=== PATIENT | male | born 1950 | race Caucasian/White ===

== ENCOUNTER 2017-08-14 10:43 | Emergency (ER) | payer BC, OTHER ==
[~2017-08-14] VITALS: Ht 182.9 cm; Wt 111.4 kg
[~2017-08-14 10:43] MED LIST: AMOX500T PO; ASPI81 PO; ATEN1TAB73 PO; CEPH500C3 PO; COQ10 PO; CRES20TA OR; FISH1000 PO; IBUP-238 PO; LORT5TAB PO; SAWPOW PO; TAB-TAB PO; VITA500T10 PO; [UNRECOGNIZED DRUG - CODE] PO
[2017-08-14 11:27] VITALS: BP 173/87; PULSE 60; RESP 18; TEMP 97.6; O2SAT 99
[2017-08-14] MEDS ORDERED: ASPI81CH7 CHEW (11:39)
[2017-08-14] MEDS ORDERED: ATEN25TA PO (11:39)
--- NOTE | 2017-08-14 11:56 | PD ---
HPI Chief Complaint: Injury Time Seen by Provider: 11:39 Travel History International Travel<30 days: No Contact w/Intl Traveler<30days: No Traveled to known affect area: No History of Present Illness HPI 67-year-old male presents to the emergency department with complaint of left knee pain and swelling since Sunday. Denies strain or traumatic injury. Denies paresthesias, loss of sensation, decreased range of motion, decreased strength to the affected extremity. Is ambulatory in the affected extremity. Denies fever, vomiting. Pain is to the medial aspect. Pain is worse with walking. Better with rest. Rates pain 9/10 with ambulation. Minimal pain while at rest. has taken ibuprofen for symptom management. Dr. Quiroga his primary care provider. History of hypertension. No known allergies. Has no other medical complaints. No other modifying factors or associated signs and symptoms. PFSH Past Medical History Blood Disorders: No Cancer: Yes (LYMPHOMA T-CELL) Cardiovascular Problems: Yes (CAD) High Cholesterol: Yes Coronary Artery Disease: Yes Diabetes: No Glaucoma: No Hepatitis: No Hiatal Hernia: No Hypertension: Yes Thyroid Disease: No Tetanus Vaccination: > 5 Years Past Surgical History Pacemaker: No Other Surgery: Yes (LEFT KNEE) Social History Alcohol Use: Yes (2-3 DRINKS 3-4 X A WEEK) Tobacco Use: No Substance Use: No Allergies-Medications (Allergen,Severity, Reaction): Coded Allergies: No Known Allergies (Verified Adverse Reaction, Unknown, 08/14/17) Uncoded Allergies: NKA (Allergy, Unknown, 01/20/03) NKDA (Allergy, Unknown, 01/20/03) Reported Meds & Prescriptions Reported Meds & Active Scripts Active Reported Aspirin Children's (Aspirin) 81 Mg Chew 81 Mg CHEW BID Atenolol 25 Mg Tab 25 Mg PO BID Review of Systems Except as stated in HPI: all other systems reviewed are Neg Physical Exam Narrative GENERAL: Well-nourished, well-developed male patient, in no acute distress; afebrile, nontoxic-appearing SKIN: Warm and dry. HEAD: Atraumatic. Normocephalic. EYES: Pupils equal and round. No scleral icterus. No injection or drainage. ENT: Mucosa pink and moist. Airway patent. NECK: Trachea midline. CARDIOVASCULAR: Regular rate. RESPIRATORY: No accessory muscle use. GASTROINTESTINAL: Rounded. MUSCULOSKELETAL: Left knee edematous, nonerythematous, and without ecchymosis; full range of motion and flexion to 90; point tenderness to the medial aspect; joint stable with negative drawer test; no obvious deformity. Left lower extremity is supple and non-tense with 2+ pedal pulse and sensory intact and without erythema or edema. Ambulatory in room with a limp to the left lower extremity. NEUROLOGICAL: Awake and alert. Oriented 3. No obvious cranial nerve deficits. Motor grossly within normal limits. Normal speech. PSYCHIATRIC: Appropriate mood and affect; insight and judgment normal. Data Data Last Documented VS Vital Signs Date Time Temp Pulse Resp B/P (MAP) Pulse Ox O2 Delivery O2 Flow Rate FiO2 08/14/17 11:27 97.6 60 18 173/87 (115) 99 Orders Orders Knee, Complete (4vws) (08/14/17 11:48) Crutches (08/14/17 11:48) MDM Medical Decision Making Medical Screen Exam Complete: Yes Emergency Medical Condition: Yes Medical Record Reviewed: Yes Differential Diagnosis Arthritis, bursitis, meniscal tear, knee strain, knee pain Narrative Course 67-year-old male with left knee pain and swelling. Denies injury. Left knee x- ray ordered. I offered the patient pain medication and he declined. 1239: Left knee x-ray concluded: Copy of the x-ray provided to the patient. Crutches and Kiel bandage provided for support. Patient says he has Percocet and Lortab for pain at home. Medrol Dosepak, ibuprofen prescribed for home. Instructed patient to follow-up if symptoms persist greater than 7-10 days. Instructed patient to follow up with primary care provider. Patient verbalizes understanding and agreement with treatment plan. Patient is medically cleared and stable for discharge. Discussed reasons to return to the emergency department. Patient agrees with treatment plan. The patients vital signs are stable and the patient is stable for outpatient follow-up and treatment. Patient discharged home, stable and in no acute distress. Diagnosis Primary Impression: Left knee pain Qualified Codes: M25.562 - Pain in left knee Referrals: Orthopaedic Surgeon Primary Care Physician Patient Instructions: Crutch Instructions (ED), General Instructions, Knee Pain (ED) Additional Instructions: Tylenol or ibuprofen as needed and as directed to reduce pain and inflammation Rest, ice, compress, and elevate extremity to decrease pain and inflammation Knee brace for support Crutches for support Avoid aggravating activity; increase activity as tolerated Follow-up with primary care provider Follow-up with orthopedics Return to the emergency department immediately with worsening symptoms Med/Other Pt SpecificInfo: Prescription(s) given Scripts Ibuprofen (Ibuprofen) 800 Mg Tab 800 MG PO Q6HR Y for PAIN, #30 TAB 0 Refills Prov: Germania Gnog 08/14/17 Methylprednisolone Dosepak (Medrol Dosepak) 4 Mg Dspk 4 MG PO DIRECTED, #1 DSPK 0 Refills Per Pharmacist direction Prov: Germania Gong 08/14/17 Disposition: 01 DISCHARGE HOME Condition: Stable Germania Gong Aug 14, 2017 11:55
--- NOTE | 2017-08-14 12:33 | RADRPT ---
EXAM DATE/TIME: 08/14/2017 12:07 [facility] COMPARISON: No previous studies available for comparison. INDICATIONS : Left knee pain, no injury. MEDICAL HISTORY : None. SURGICAL HISTORY : None. ENCOUNTER: Initial ACUITY: 3 days PAIN SCORE: 9/10 LOCATION: Left lateral knee FINDINGS: 4 view examination demonstrates moderate narrowing of the medial compartment, tibial plateau sclerosi s, and moderate osteophyte formation. There is also superior osteophytes rising from the patella. The suprapatellar soft tissues are not distended. No fracture seen. No radiopaque foreign bodies. CONCLUSION: Moderate degenerative changes in the medial and patellofemoral compartments. Adan Nichols MD on August 14, 2017 at 12:24 Board Certified Radiologist. This report was verified electronically.
[2017-08-14] MEDS ORDERED: MEDR4PAK PO (12:41)
[2017-08-14] MEDS ORDERED: IBUP1TAB7 PO (12:41)
== END 2017-08-14 12:56 | disposition home or self-care (01) ==
LOC: NEPK 10:43
DX: M25.562 Pain in left knee (principal); I10 Essential (primary) hypertension; I25.10 Atherosclerotic heart disease of native coronary artery without angina pectoris; E78.00 Pure hypercholesterolemia, unspecified; Z85.72 Personal history of non-Hodgkin lymphomas; Z79.899 Other long term (current) drug therapy
CPT/HCPCS: 73564; 99283; E0113